=== PATIENT | female | born 1975 | race Caucasian/White ===

== ENCOUNTER 2018-12-31 22:14 | Inpatient (IN) | payer OTHER ==
[~2018-12-31] VITALS: Ht 152.4 cm; Wt 88.5 kg
[~2018-12-31 22:14] MED LIST: ACET500; AZIT500 PO; CALCA500CH PO; CODACEE120 PO; ESTR.625; HYDACE5 PO; IBUP200; NAPR500 PO; OMEP40CA12 PO; PEPTO; PRED20 PO; SUCR1 PO; [UNRECOGNIZED DRUG - OTHER]
[2018-12-31 23:47] LABS: BASOPHILS ABSOLUTE AUTO 0.04 K/mm3 (0.00-0.23); BASOPHILS PERCENT AUTO 0 % (0-2); EOSINOPHILS ABSOLUTE AUTO 0.72 K/mm3 (0.00-0.68); EOSINOPHILS PERCENT AUTO 5 % (0-6); Hematocrit 43.8 % (33.0-51.0); Hemoglobin 14.5 g/dL (11.5-16.0); IMMATURE GRAN ABSOLUTE AUTO 0.07 K/mm3 (0.00-0.10); IMMATURE GRAN PERCENT AUTO 1 % (0-1); LYMPHOCYTES ABSOLUTE AUTO 2.37 K/mm3 (0.84-5.20); LYMPHOCYTES PERCENT AUTO 16 % (21-46); MONOCYTES ABSOLUTE AUTO 0.67 K/mm3 (0.16-1.47); MONOCYTES PERCENT AUTO 5 % (4-13); Mean Corpuscular HGB 29.8 pg (26.0-34.0); Mean Corpuscular HGB Conc 33.1 g/dL (31.5-36.5); Mean Corpuscular Volume 90 fL (80-100); Mean Platelet Volume 10.8 fL (9.1-12.4); NEUTROPHILS ABSOLUTE AUTO 10.99 K/mm3 (1.96-9.15); NEUTROPHILS PERCENT AUTO 74 % (41-73); Platelet Count 279 K/mm3 (150-400); RDW Coefficient Variation 12.1 % (11.7-14.2); RDW Standard Deviation 39.8 fL (35.1-46.3); Red Blood Cell Count 4.87 M/mm3 (3.80-5.20); White Blood Cell Count 14.86 K/mm3 (4.00-11.30)
[2019-01-01 00:10] LABS: Alanine Aminotransfer (ALT/SGP 29 U/L (12-78); Albumin/Globulin Ratio 1.4 (0.8-1.8); Alk Phos 70 U/L (50-136); Anion Gap 8 mmol/L (6-16); Aspartate Aminotrans (AST/SGOT 19 U/L (12-37); Bilirubin, Total 0.6 mg/dL (0.1-1.0); Blood Urea Nitrogen 14 mg/dL (8-24); Bun/Creatinine Ratio 16.1 (12.0-20.0); CO2, Blood 25 mmol/L (21-32); Calcium, Blood 8.5 mg/dL (8.5-10.1); Chloride, Blood 109 mmol/L (98-108); Creatinine, Blood 0.87 mg/dL (0.40-1.00); Globulin, Blood 2.9 g/dL (2.2-4.0); Glomerular Filtration Rate >60 (60-); Glucose, Blood 119 mg/dL (70-99); Potassium, Blood 3.5 mmol/L (3.5-5.5); Sodium, Blood 142 mmol/L (136-145); Total Protein, Blood 6.9 g/dL (6.4-8.2)
[2019-01-01 01:31] LABS: Adenovirus F 40/41 Not Detected (NOT DETECT); Astrovirus Not Detected (NOT DETECT); Campylobacter Sp Not Detected (NOT DETECT); Cryptosporidium Not Detected (NOT DETECT); Cyclospora Cayetanensis Not Detected (NOT DETECT); E. Coli O157 Not Detected (NOT DETECT); Entamoeba Histolytica Not Detected (NOT DETECT); Enteroaggregative E. coli-EAEC Not Detected (NOT DETECT); Enteropathogenic E. coli-EPEC Not Detected (NOT DETECT); Enterotoxigenic E. coli-ETEC Not Detected (NOT DETECT); Giardia Lamblia Not Detected (NOT DETECT); Norovirus GI/GII Not Detected (NOT DETECT); Plesiomonas Shigelloides Not Detected (NOT DETECT); Rotavirus A Not Detected (NOT DETECT); Salmonella Sp Not Detected (NOT DETECT); Sapovirus Not Detected (NOT DETECT); Shiga Toxin-prod E. coli-STEC Not Detected (NOT DETECT); Shigella/Enteroin E. coli-EIEC Not Detected (NOT DETECT); Vibrio Cholerae Not Detected (NOT DETECT); Vibrio Sp Not Detected (NOT DETECT); Yersinia Enterocolitica Not Detected (NOT DETECT)
[2019-01-01] MEDS ORDERED: ONDA4ODT MM ×2 (09:46)
--- NOTE | 2019-01-01 18:17 | NUR ---
SHIFT SUMMARY DOING WELL, INDEPENDENT IN ROOM AND TOLERATING WATER AND ICE CHIPS. ALTHOUGH DIET IS ADVANCED TOLERATED, PT IN UNINTERESTED IN MORE AT THIS TIME. COMPLAINS OF MILD ABD PAIN THAT WAS RELIEVED BY IV PAIN MEDICATIONS. SURGICAL CONSULT CALLED AND DR. MCCRAY IN TO SEE PT THIS AFTERNOON.
--- NOTE | 2019-01-01 19:08 | NUR ---
recvd report from previous shift ZACH Briones, pt lying in bed resting, states she would like to have pain control soon, will reassess and medicate per nov, call light within reach, bed rails up x 2, bed in lowest position
--- NOTE | 2019-01-02 04:25 | NUR ---
shift summary: vss, no acute changes, pt states her BP runs low at baseline, states she is asymptomatic with no lightheadedness or dizziness. pt tolerated ice chips and sip, states she is "scared" to advance diet today. ENcouraged pt to focus on what she wants, to take advanced diet slowly. pt states pain/nausea controlled per NOV. pt's slept in room with pt. pt remained a/0 x 4, pleasant/cooperative. pt appears to be sleeping during nurse rounding. at 414 rounding, pt awake, states she has itchy rash on face, reports she had iodine contrast for imaging studies, provided IV bendryl per NOV
[2019-01-02 05:12] LABS: BASOPHILS ABSOLUTE AUTO 0.02 K/mm3 (0.00-0.23); BASOPHILS PERCENT AUTO 0 % (0-2); EOSINOPHILS ABSOLUTE AUTO 0.09 K/mm3 (0.00-0.68); EOSINOPHILS PERCENT AUTO 1 % (0-6); Hematocrit 39.4 % (33.0-51.0); Hemoglobin 12.8 g/dL (11.5-16.0); IMMATURE GRAN ABSOLUTE AUTO 0.04 K/mm3 (0.00-0.10); IMMATURE GRAN PERCENT AUTO 0 % (0-1); LYMPHOCYTES ABSOLUTE AUTO 3.46 K/mm3 (0.84-5.20); LYMPHOCYTES PERCENT AUTO 30 % (21-46); MONOCYTES ABSOLUTE AUTO 0.55 K/mm3 (0.16-1.47); MONOCYTES PERCENT AUTO 5 % (4-13); Mean Corpuscular HGB Conc 32.5 g/dL (31.5-36.5); Mean Corpuscular Volume 89 fL (80-100); Mean Platelet Volume 10.7 fL (9.1-12.4); NEUTROPHILS ABSOLUTE AUTO 7.32 K/mm3 (1.96-9.15); NEUTROPHILS PERCENT AUTO 64 % (41-73); Platelet Count 248 K/mm3 (150-400); RDW Coefficient Variation 12.1 % (11.7-14.2); RDW Standard Deviation 39.2 fL (35.1-46.3); Red Blood Cell Count 4.42 M/mm3 (3.80-5.20); White Blood Cell Count 11.48 K/mm3 (4.00-11.30)
[2019-01-02 05:32] LABS: Alanine Aminotransfer (ALT/SGP 21 U/L (12-78); Albumin, Blood 3.5 g/dL (3.4-5.0); Albumin/Globulin Ratio 1.2 (0.8-1.8); Alk Phos 58 U/L (50-136); Anion Gap 9 mmol/L (6-16); Aspartate Aminotrans (AST/SGOT 13 U/L (12-37); Bilirubin, Total 0.5 mg/dL (0.1-1.0); Blood Urea Nitrogen 8 mg/dL (8-24); Bun/Creatinine Ratio 10.4 (12.0-20.0); CO2, Blood 22 mmol/L (21-32); Calcium, Blood 7.9 mg/dL (8.5-10.1); Chloride, Blood 113 mmol/L (98-108); Creatinine, Blood 0.77 mg/dL (0.40-1.00); Globulin, Blood 2.8 g/dL (2.2-4.0); Glomerular Filtration Rate >60 (60-); Glucose, Blood 83 mg/dL (70-99); Potassium, Blood 3.5 mmol/L (3.5-5.5); Sodium, Blood 144 mmol/L (136-145); Total Protein, Blood 6.3 g/dL (6.4-8.2)
--- NOTE | 2019-01-02 11:44 | NUR ---
[facility] CONTACT INFO PER HOSPITALIST REQUEST, PT PROVIDED DR HUGHES'S NUMBER [phone]
--- NOTE | 2019-01-02 18:25 | NUR ---
SHIFT SUMMARY AMBULATING INDEPENDENTLY IN ROOM. NO BM BUT VOIDED TWICE. PAIN MANAGED WITH IV FENTYNAL AND REST. PT UNWILLING TO ADVANCED DIET, DESPITE FREQUENT ENCOURAGEMENT. ONLY ABLE TO DRINK WARM TEA, ICE, AND WATER. C/O JELLO CAUSES STOMACH CRAMPS.
--- NOTE | 2019-01-03 09:20 | NUR ---
HYPOTENSION PT BP DROPS SIGNIFICANTLY WHEN WORKING WITH OT, SEE OT NOTE.
--- NOTE | 2019-01-03 18:15 | NUR ---
SHIFT SUMMARY STRONGLY ENCOURAGED TO INCREASE PO INTAKE FROM LIQUIDS ONLY TO SOLID FOODS. PT AGREED TO TRY YOGURT AND CHICKEN NOODLE SOUP. SHE DID NOT TOLERATE IT WELL. AMBULATED TWICE IN THE HALLWAY IND AND WAS MORE ACTIVE IN THE ROOM. PAIN WELL CONTROLLED BY PERCOCET AND IVF CONTINUED TO INFUSE.
--- NOTE | 2019-01-04 04:58 | NUR ---
SHIFT SUMMARY: PT RESTING MOST OF SHIFT. A&O X4, VS WNL. PAIN MANAGED WITH PERCOCET PER EMAR. NPO FOR SCHED ENDOSCOPY LATER TODAY. FLUIDS INFUSING. PT DENIES PASSING GAS, NO BM. INDEPENDENT IN ROOM.
--- NOTE | 2019-01-04 08:15 | NUR ---
PT TO HAVE PROCEDURE ON GURNEY WITH OTHER STAFF. FAMILY IN ROOM.
--- NOTE | 2019-01-04 09:24 | NUR ---
01/04/19 0924 Jus Clements Bite Block PlacedPATIENT DETERMINED TO BE ASA APPROPRIATE FOR PROPOFOL SEDATION PRIOR TO START OF PROCEDURE BY .3-LEAD EKG REVIEWED WITH PHYSICIAN PRIOR TO START OF PROCEDURE.History, Chart, Medications and Allergies reviewed before start of procedure.MONITOR INTACT WITH CONTINUOUS PULSE OXIMETRY AND INTERMITTENT BP.O2 VIA N/C INTACT THROUGHOUT SEDATION/PROCEDURE.
--- NOTE | 2019-01-04 10:00 | NUR ---
PT NOW BACK FROM PROCEDURE. REPORT BEEN GIVEN. PT SLEEPY. DENIES PAIN, NAUSEA, SOB, CP. PT LS CLEAR. FAMILY IN ROOM.
[2019-01-04] MEDS ORDERED: METO5A PO (14:50)
[2019-01-04] MEDS ORDERED: Omeprazole20 M1 PO (14:50)
--- NOTE | 2019-01-04 15:10 | NUR ---
DISCHARGE: PT TOLERATING DIET. PT DENIES NAUSEA. PT VOIDING. PT UP IND. PT DENIES PAIN. PT/FAMILY REPORTS UNDERSTANDING OF DISCHARGE INSTRUCTIONS. WORK NOTE GIVEN TO PT. MEDICATIONS CALLED TO PHARMACY OF PT'S CHOICE.
== END 2019-01-04 15:10 | disposition home or self-care (01) | DRG 392 ==
LOC: ER 22:14 → ERHOLD 22:15 → SURS 01-01 05:48 → ERHOLD 01-01 05:49 → SURS 01-01 09:42
PROVIDERS: Emergency Medicine; Surgery; ADMIT Internal Medicine
PROC: 0D9 Gastrointestinal System, Drainage (ICD-10-PCS; 2019-01-04)
PROC: 0DB78ZX Excision of Stomach, Pylorus, Via Natural or Artificial Opening Endoscopic, Diagnostic (ICD-10-PCS; principal; 2019-01-04 08:45)
DX: K52.9 Noninfective gastroenteritis and colitis, unspecified (principal); D68.51 Activated protein C resistance; K21.9 Gastro-esophageal reflux disease without esophagitis; Z86.711 Personal history of pulmonary embolism; E66.9 Obesity, unspecified; Z68.38 Body mass index [BMI] 38.0-38.9, adult
CPT/HCPCS: 36415; 74174; 74176; 80053; 83605; 83690; 84703; 85025; 85027; 87507; 96361; 96374; 96375; 96376; 99285-25; C9113; J1200; J1650; J2405; J2704; J2930; J3010; J7030; J7120; Q9967

== ENCOUNTER 2021-07-24 09:35 | Day surgery (SDC) | payer OTHER ==
[~2021-07-24] VITALS: Ht 152.4 cm; Wt 89.6 kg
[~2021-07-24 09:35] MED LIST changes: +ERGO400; +METO5A PO; +ONDA4ODT MM; +Omeprazole20 M1 PO
--- NOTE | 2021-07-24 11:36 | NUR ---
07/24/21 1136 Lexa Winter INJECTING MYLICON PER DR JAIRO RIVERS.
== END 2021-07-24 12:14 | disposition home or self-care (01) ==
LOC: ORSCSDS 09:35
PROVIDERS: Internal Medicine Gastroenterology
PROC: 0DBM8ZX Excision of Descending Colon, Via Natural or Artificial Opening Endoscopic, Diagnostic (ICD-10-PCS; principal; 2021-07-24 11:00)
DX: K62.5 Hemorrhage of anus and rectum (principal); R10.32 Left lower quadrant pain; R16.0 Hepatomegaly, not elsewhere classified; D12.4 Benign neoplasm of descending colon; K57.30 Diverticulosis of large intestine without perforation or abscess without bleeding
CPT/HCPCS: 88305; J2704; J7120